=== PATIENT | male | born 1960 | race Caucasian/White ===

== ENCOUNTER 2021-06-16 10:46 | Outpatient (CLI) | payer MEDICARE, SELFPAY ==
[2021-06-16 11:22] LABS: Absolute Neutrophil Count 6.3 X10^3/uL (2.0-7.7); Basophil# 0.06 X10^3/uL; Basophil% 0.7 % (0-1); Eosinophils% 4.4 % (0-5); Hematocrit 33.8 % (40-54); Hemoglobin 11.1 g/dL (13.0-16.5); Lymphocyte % 16.5 % (19-41); Mean Corp Hgb Conc 32.8 g/dL (32-36); Mean Corpuscular Hgb 29.6 pg (27.0-32.0); Mean Corpuscular Volume 90.1 fL (80-94); Mean Platelet Vol. 9.2 fl (6.2-12.0); Monocyte# 0.76 X10^3/uL; Monocyte% 8.4 % (0-10); NRBC Flagged by Analyzer 0 % (0-5); Neutrophil # 6.33 X10^3/uL (2.7-7.7); Neutrophil % 69.7 % (47-70); Platelet Count 259 K/mm3 (150-450); RBC Distribution Width CV 13.4 % (11.6-14.6); RBC Distribution Width SD 43.9 fl (35.1-43.9); Red Blood Count 3.75 M/mm3 (4.6-6.2); White Blood Count 9.1 K/mm3 (4.4-11.0)
[2021-06-16 12:02] LABS: Hepatitis B Surface Antibody Reactive
[2021-06-16 12:04] LABS: ALB/GLOB Ratio 0.8 RATIO (0.9-2.4); AST(SGOT) 26 U/L (15-37); Alanine Aminotransfer ALT/SGPT 48 U/L (16-61); Alkaline Phosphatase 115 U/L (45-117); Anion Gap 6 (5-15); BUN 27 mg/dL (7-18); BUN/Creat Ratio 25.7 RATIO (10-20); Calcium,Total 8.7 mg/dL (8.5-10.1); Chloride 106 mmol/L (98-107); Creatinine, Serum 1.05 mg/dL (0.70-1.30); EST Glomerular Filtration Rate 76 mL/min (>60); Est Glom Filt Rate - Afr Amer 93 mL/min (>60); Globulin 3.8 g/dL (2.2-4.2); Glucose 93 mg/dL (74-106); Potassium 4.9 mmol/L (3.5-5.1); Protein, Total 6.8 g/dL (6.4-8.2); Sodium Level 138 mmol/L (136-145)
[2021-06-18 21:07] LABS: HEPATITIS B SURFACE AG Negative (Negative); Hepatitis A IgM Antibody Negative (Negative); Hepatitis B Core AB IgM Negative (Negative); Hepatitis B Core Ab Total Negative (Negative); QNTFERON TB Mitogen Value > 10.00 IU/mL (.); QNTFERON TB Nil Value 0.03 IU/mL (.); QNTFERON TB1+ Ag Value 0.03 IU/mL (.); QNTFERON TB2+ Ag Value 0.03 IU/mL (.)
[2021-06-19 10:05] LABS: Hep C Antibodies 0.1 s/co ratio (0.0-0.9); Hepatitis A AB, Total Positive (Negative); QNTIFERON TB Positive Criteria Negative (Negative)
== END 2021-06-16 23:59 | disposition home or self-care (01) ==
LOC: LAB 10:50
PROVIDERS: Referring Provider Physician Assistant Medical; Visit Provider Physician Assistant Medical
DX: L40.0 Psoriasis vulgaris (principal); Z79.899 Other long term (current) drug therapy
CPT/HCPCS: 36415; 80053; 80074; 85025; 86480; 86704; 86706; 86708

== ENCOUNTER 2021-12-02 15:29 | Emergency (ER) | payer MEDICARE, MEDICAID, SELFPAY ==
[2021-12-02 15:30] VITALS: BP 160/84; PULSE 94; RESP 16; TEMP 36.7; O2SAT 94; BMI 36.5
--- NOTE | 2021-12-02 17:05 | NURSING ---
NO OLD EKGS
--- NOTE | 2021-12-02 17:20 | RAD_ITS ---
STUDY: X-RAY CHEST REASON FOR EXAM: Male, 61 years old. sob TECHNIQUE: AP portable COMPARISON: 06/12/2013 FINDINGS: Reticulonodular interstitial thickening is seen within both lower lobes possibly inflammatory.. There is no demonstrated pleural abnormality. Normal size heart. Normal mediastinum and bob. Normal visualized pulmonary arteries. Mildly calcified aortic arch and descending thoracic aorta. Normal visualized thoracic spine. Normal visualized ribs, clavicles, and shoulders. There is no demonstrated abnormality of the visualized soft tissue structures of the upper abdomen. RAD/Chest 1 View (Portable) IMPRESSION: Reticulonodular interstitial thickening in the lower lobes possibly inflammatory. Clinical correlation recommended Electronically Signed: Warner Valenzuela MD at 17:42 EDT ,
[2021-12-02 17:32] LABS: Absolute Lymphocyte Count 1.41 X10^3/uL (0.83-4.51); Absolute Neutrophil Count 6.5 X10^3/uL (2.0-7.7); Basophil# 0.07 X10^3/uL; Basophil% 0.7 % (0-1); Eosinophil# 0.62 X10^3/uL; Eosinophils% 6.5 % (0-5); Hematocrit 36.9 % (40-54); Hemoglobin 12.2 g/dL (13.0-16.5); Lymphocyte # 1.41 X10^3/ul (0.83-4.51); Lymphocyte % 14.8 % (19-41); Mean Corp Hgb Conc 33.1 g/dL (32-36); Mean Corpuscular Hgb 30.3 pg (27.0-32.0); Mean Corpuscular Volume 91.8 fL (80-94); Mean Platelet Vol. 9.5 fl (6.2-12.0); Monocyte# 0.91 X10^3/uL; Monocyte% 9.5 % (0-10); NRBC Flagged by Analyzer 0 % (0-5); Neutrophil % 68.2 % (47-70); Platelet Count 306 K/mm3 (150-450); RBC Distribution Width CV 13.2 % (11.6-14.6); RBC Distribution Width SD 44.8 fl (35.1-43.9); Red Blood Count 4.02 M/mm3 (4.6-6.2); White Blood Count 9.5 K/mm3 (4.4-11.0)
[2021-12-02 17:47] LABS: Anion Gap 5 (5-15); BUN 31 mg/dL (7-18); BUN/Creat Ratio 20.9 RATIO (10-20); Calcium,Total 9.1 mg/dL (8.5-10.1); Chloride 105 mmol/L (98-107); Creatinine, Serum 1.48 mg/dL (0.70-1.30); EST Glomerular Filtration Rate 51 mL/min (>60); Est Glom Filt Rate - Afr Amer 62 mL/min (>60); Estimated Creatinine Clearance 43.89 ml/min; Glucose 92 mg/dL (74-106); Potassium 4.6 mmol/L (3.5-5.1); Sodium Level 137 mmol/L (136-145)
[2021-12-02 18:05] VITALS: BP 165/86; PULSE 82; RESP 16; O2SAT 97
[2021-12-02 18:07] VITALS: O2SAT 98
[2021-12-02] MEDS: Ipratropium/Albuterol Sulfate 3 ML AMPUL.NEB INHALATION (19:10)
[2021-12-02 19:11] VITALS: PULSE 84; RESP 16
--- NOTE | 2021-12-02 19:32 | ED.VIS.DYS ---
HPI History of Present Illness Chief Complaint: Shortness of Breath Informant: patient Onset/Context/Timing Onset: Days (2) Context: gradual Timing: Continuous Quality: Positive for Dyspnea on exertion Worsened by: Exertion Relieved by: Rest Associated Symptoms cough; Negative for rhinorrhea, post nasal drip, ear pain, fever, sore throat, chills, sweats, clear sputum, white sputum, yellow sputum or green sputum Chest Pain: Positive for None Narrative Narrative: Patient presents with shortness of breath that has been getting worse over the past 2 days. Patient is on home oxygen at 2 L nasal cannula. Patient states his breathing is worse with exertion and better with rest. Patient was seen in [place] yesterday. 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 Patient states she has been having some swelling in his legs. Patient did have a venous duplex and CTA of his chest in [place] yesterday. These were negative. Patient admits to a cough but denies any sputum production. Patient denies any fevers or chills. Patient denies any chest pain. Patient has a history of COPD. PE Risk Factors: Negative for Cancer, OCP + Smoking + > 35, Prior DVT or PE, Recent immobilization, Recent surgery or Recent travel [facility] Medical History (Updated 12/02/21 @ 21:[address] Charlie Villalta DO) COPD (chronic obstructive pulmonary disease) Diabetes Hypercholesterolemia Hypertension Allergy/AdvReac Type Severity Reaction Status Date / Time No Known Allergies Allergy Verified 12/02/21 15:30 Surgical History (Updated 12/02/21 @ 21:[address] Charlie Villalta DO) History of herniorrhaphy Social History Smoking Status: Current every day smoker tobacco type: cigarettes ROS ROS ED Constitutional Constitutional ED: Denies chills or fever(s) Eyes Eyes: Denies blurry vision or change in vision ENT ENT ED: Denies rhinorrhea or sore throat Cardiovascular Cardiovascular: Denies chest pain or palpitations Respiratory/Chest Respiratory/Chest: Reports cough and dyspnea Gastrointestinal Gastrointestinal: Denies nausea or vomiting Genitourinary Genitourinary ED: Denies dysuria or hematuria Musculoskeletal Musculoskeletal: Denies back pain or neck pain Integumentary Denies abscess or rash Neurologic Neurologic: Reports headache(s); Denies weakness Allergic/Immunologic Allergic/Immunologic ED: Denies mouth swelling or urticaria EXAM Physical Exam Const Vital Signs: 12/02/21 15:30 12/02/21 18:05 12/02/21 18:05 Temperature 98.1 F Temperature Source Temporal Pulse Rate 94 82 Respiratory Rate 16 16 Respiratory Effort Blood Pressure 160/84 H 165/86 H Blood Pressure Mean 109 112 Pulse Ox 94 97 97 Oxygen Delivery Method Nasal Cannula Nasal Cannula Nasal Cannula Oxygen Flow Rate (L/min) 2 2 2 12/02/21 18:05 12/02/21 18:07 12/02/21 19:11 Temperature Temperature Source Pulse Rate 84 Respiratory Rate 16 Respiratory Effort Short of Breath Blood Pressure Blood Pressure Mean Pulse Ox 97 Oxygen Delivery Method Nasal Cannula Nasal Cannula Oxygen Flow Rate (L/min) 2 2 Positive well nourished and well developed General Appearance ED: well developed and NAD HEENT Reports moist mucous membranes Neck supple and no JVD Resp normal respiratory effort Auscultation: wheezes Cardio regular rate, regular rhythm and no murmurs GI normal to inspection, nondistended, normoactive bowel sounds and non-tender Palpation: soft Extremity normal to inspection General Extremety ED: Negative for edema or tenderness General Extremity: Negative for edema Neuro oriented x3, CN's II-XII intact bilaterally and no sensory deficits noted Sensorium / Orientation: alert Motor Exam: strength 5/5 throughout Psych mental status grossly normal Skin no rashes or lesions noted MDM MDM MDM Narrative Medical decision making narrative: Patient was given a DuoNeb aerosol here. EKG was obtained. On my interpretation, it showed a normal sinus rhythm with a rate of 82. DC interval, QRS interval, and QTc intervals were all normal. [place] was normal. There are no acute ST or T wave changes. CBC was within normal limits. Basic metabolic profile showed a slightly elevated creatinine of 1.48 and BUN of 31. Portable 1 view chest x-ray was obtained. On my interpretation, lung gustafson show some interstitial thickening in the lower lobes bilaterally. There is normal cardiac silhouette. Bony thorax is normal. There is no acute process noted. Radiologist also interpreted the x-ray and agrees. Lab Data Labs: Laboratory Results - last 24 hr 12/02/21 12/02/21 17:15 17:15 WBC 9.5 RBC 4.02 L Hgb 12.2 L Hct 36.9 L MCV 91.8 MCH 30.3 MCHC 33.1 RDW Std Deviation 44.8 H RDW Coeff of Grace 13.2 Plt Count 306 MPV 9.5 Immature Gran % (Auto) 0.300 Neut % (Auto) 68.2 Lymph % (Auto) 14.8 L [place] % (Auto) 9.5 Eos % (Auto) 6.5 H Baso % (Auto) 0.7 Absolute Neuts (auto) 6.5 Absolute Lymphs (auto) 1.41 Nucleated RBC % 0 Sodium 137 Potassium 4.6 Chloride 105 Carbon Dioxide 27.0 Anion Gap 5 BUN 31 H Creatinine 1.48 H Estim Creat Clear Calc 43.89 Est GFR (MDRD) Af Amer 62 Est GFR (MDRD) Non-Af 51 L BUN/Creatinine Ratio 20.9 H Glucose 92 Calcium 9.1 Radiography Chest X-Ray - ED: 1 View, Read by ED Physician, Read by Radiologist and No Acute Disease Diagnostic Testing: Clinical Impression(s) from Imaging Studies Chest X-Ray 12/02/21 17:20 IMPRESSION: Reticulonodular interstitial thickening in the lower lobes possibly inflammatory. Clinical correlation recommended Electronically Signed: Warner Valenzuela MD at 17:42 EDT , EKG Initial EKG: Attestation: I personally reviewed and interpreted this EKG as follows: Interpretation: Sinus Rhythm (82) and No Acute Injury Pattern Prior EKG tracings: not available for review Discharge Plan Triage Chief Complaint: Shortness of Breath ED Provider: Charlie Villalta Dx/Rx/DC Orders Clinical Impression: COPD exacerbation, Hypertension, PAD (peripheral artery disease) Instructions: ED COPD Flare Primary Care Provider: FREDDY JOHNSON Referrals: FREDDY JOHNSON [Other] - 3-5 Days Charlie Ivy MD [Med Staff - Active Staff] - 1-2 Weeks Disposition Disposition: Home, Self Care
[2021-12-02 21:06] VITALS: PULSE 86; RESP 17; O2SAT 94
== END 2021-12-02 21:41 | disposition home or self-care (01) ==
PROVIDERS: Emergency Provider Emergency Medicine; Visit Provider Emergency Medicine
DX: J44.1 Chronic obstructive pulmonary disease with (acute) exacerbation (principal); E11.51 Type 2 diabetes mellitus with diabetic peripheral angiopathy without gangrene; F17.210 Nicotine dependence, cigarettes, uncomplicated; I10 Essential (primary) hypertension; E78.00 Pure hypercholesterolemia, unspecified; Z79.84 Long term (current) use of oral hypoglycemic drugs; Z79.82 Long term (current) use of aspirin; Z79.899 Other long term (current) drug therapy; Z99.81 Dependence on supplemental oxygen; M79.89 Other specified soft tissue disorders
CPT/HCPCS: 71045; 80048; 85025; 87811; 93005; 94640; 94760; 99283; A4216